=== PATIENT | male | born 1950 | race Caucasian/White ===

== ENCOUNTER 2018-03-13 13:53 | Emergency (ER) | payer MEDICARE, OTHER ==
[2018-03-13] MEDS ORDERED: Fluorescein Sod TOPICAL 0.6* 0.6 MG TEST OPHTHALMIC ONE (14:40)
[2018-03-13] MEDS ORDERED: Tetracaine 0.5% OPTH.SOL 4 ML* 1 DROP BTL LEFT EYE ONE (14:48)
[2018-03-13] MEDS ORDERED: Tetracaine 0.5% OPTH.SOL 15ML* BTL LEFT EYE SCH (15:00)
[2018-03-13 17:42] VITALS: BP 127/81
--- NOTE | 2018-03-13 18:06 | ED ---
Throat Pain/Nasal Congestion - HPI Summary HPI Summary: Patient is a 42-year-old male who presents emergency department for pain to his right eye that started just prior to arrival. 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 Patient states he was wearing safety goggles. He does not wear contacts. Symptoms are mild in severity. Blinking and moving eye makes symptoms worse. Nothing makes symptoms better. - History of Current Complaint Chief Complaint: EDEyeProblem Time Seen by Provider: 03/13/18 14:52 Hx Obtained From: Patient PMH/Surg Hx/FS Hx/Imm Hx Previously Healthy: Yes Infectious Disease History: No Infectious Disease History: Denies: Traveled Outside the [place] in Last 30 Days - Social History Occupation: Employed Full-time Lives: With Family Review of Systems Positive: Drainage, Erythema, Other All Other Systems Reviewed And Are Negative: Yes Physical Exam Triage Information Reviewed: Yes Vital Signs On Initial Exam: Initial Vitals Temp Pulse Resp BP Pulse Ox 98.1 F 86 16 149/83 96 03/13/18 14:25 03/13/18 14:25 03/13/18 14:25 03/13/18 14:25 03/13/18 14:25 Vital Signs Reviewed: Yes Appearance: Positive: Pain Distress - Patient lying in bed with his eyes closed , otherwise well-appearing and nontoxic. Skin: Positive: Warm, Dry Head/Face: Positive: Normal Head/Face Inspection Eyes: Positive: Other: - Left eye is unremarkable. Diffuse injection noted to the right conjunctiva with mild tearing from right eye. Orbital erythema or edema. Extraocular muscles intact. No obvious FB. Neck: Positive: Supple Neurological: Positive: Normal, CN Intact II-III Psychiatric: Positive: Affect/Mood Appropriate Procedures - Procedure Summary Procedure Summary: Right eye was anesthetized with tetracaine drops. Eye was stained with fluorescein dye and examined under Huynh lamp. No obvious uptake was noted. Eyelid was everted and a very small piece of metal was removed with a Q-tip. After the foreign body was removed patient states pain has greatly improved. Diagnostics - Vital Signs Vital Signs Temp Pulse Resp BP Pulse Ox 03/13/18 17:40 97.2 F 66 18 127/81 96 03/13/18 14:25 98.1 F 86 16 149/83 96 - Laboratory Lab Statement: Any lab studies that have been ordered have been reviewed, and results considered in the medical decision making process. EENT Course/Dx - Course Course Of Treatment: Patient presenting with right eye pain after eating with metal. I removed a very small piece of metal from right upper eyelid and patient's pain greatly improved. We'll place him on erythromycin ointment prophylactically. Advised cool compresses. NSAIDs for pain as directed. Advised to follow-up with his eye doctor or rehabilitation supervisor ophthalmology for follow-up if symptoms persist. To return to the ER symptoms change or worsen. Patient understands and agrees with plan. - Differential Diagnoses Differential Diagnoses: Corneal Abrasion - Diagnoses Provider Diagnoses: Corneal abrasion, Eye foreign body Discharge - Sign-Out/Discharge Documenting (check all that apply): Patient Departure - Discharge Plan Condition: Good Disposition: HOME Prescriptions: Erythromycin OPTH OINT* [Erythromycin 0.5% OPTH OINT*] 1 applic RIGHT EYE TID # 1 ophth.oint Patient Education Materials: Corneal Abrasion (ED), Eye Foreign Body (ED) Referrals: Balta Hernandez MD [Medical Doctor] - Aliza Welch MD [Primary Care Provider] - Additional Instructions: Call your eye doctor on Thursday for a follow up appointment Use antibiotic ointment as directed Apply cool compress to eye NSAIDS for pain as directed such as ibuprofen Return to ER if symptoms change or worsen - Billing Disposition and Condition Condition: GOOD Disposition: Home
== END 2018-03-13 17:40 | disposition home or self-care (01) ==
LOC: ED 13:53
DX: S05.01XA Injury of conjunctiva and corneal abrasion without foreign body, right eye, initial encounter (principal); W45.8XXA Other foreign body or object entering through skin, initial encounter; Y92.9 Unspecified place or not applicable
CPT/HCPCS: 99282; A9270-GY

== ENCOUNTER 2019-02-09 11:28 | Emergency (ER) | payer MEDICARE, OTHER ==
[2019-02-09 13:28] LABS: ABS Basophils 0.1 10^3/ul (0-0.2); ABS Eosinophils 0.1 10^3/ul (0-0.6); ABS Lymphocytes 1.8 10^3/ul (1.0-4.8); ABS Monocytes 0.5 10^3/ul (0-0.8); ABS Neutrophils 2.9 10^3/ul (1.5-7.7); Eosinophil % 1.6 %; Hematocrit 41 % (42-52); Lymphocyte % 33.6 %; Mean Corpuscular HGB Conc 34 g/dL (31-36); Mean Corpuscular Hemoglobin 30 pg (27-31); Mean Corpuscular Volume 88 fL (80-94); Mean Platelet Volume 8.6 fL (7.4-10.4); Platelet Count 201 10^3/uL (150-450); Red Blood Count 4.63 10^6 /uL (4.18-5.48); Red Cell Distribution Width 13 % (10-15); White Blood Count 5.3 10^3/uL (3.5-10.8)
--- NOTE | 2019-02-09 13:41 | ED ---
HPI Chest Pain - HPI Summary HPI Summary: Pt is a 68 y/o M presenting to the ED with a chief complaint of chest pain in his R anterior chest onset this morning around 0800 described as squeezing. He also notes slight lightheadedness nausea, diaphoresis, and diarrhea. He states he had a stressful morning and was also drinking coffee. In addition to the chest pain, he states he just finished his Doxycycline for a tick bite, and has hx of Barretts esophagus that he takes daily Omeprazole for. He denies abd pain. - History of Current Complaint Chief Complaint: EDChestPainROMI Time Seen by Provider: 02/09/19 12:57 Hx Obtained From: Patient Onset/Duration: Started Hours Ago, Still Present Timing: Constant, Lasting Hours Initial Severity: Moderate Current Severity: Mild Pain Intensity: 2 Pain Scale Used: 0-10 Numeric Chest Pain Location: Right Anterior Chest Pain Radiates: No Character: Pressure/Squeezing Aggravating Factor(s): Caffeine, Other: - stress Alleviating Factor(s): Nothing Associated Signs and Symptoms: Positive: Chest Pain, Recent Stress, Dizziness, Diaphoresis, Nausea. Negative: Abdominal Pain - Allergy/Home Medications Allergies/Adverse Reactions: Allergies Allergy/AdvReac Type Severity Reaction Status Date / Time strawberry Allergy Anaphylatic Verified 02/09/19 11:34 Shock PMH/Surg Hx/FS Hx/Imm Hx Previously Healthy: Yes Endocrine/Hematology History: Denies: Hx Diabetes GI History: Reports: Hx Gastroesophageal Reflux Disease - butler's esophagus Infectious Disease History: No Infectious Disease History: Denies: Traveled Outside the [place] in Last 30 Days - Family History Known Family History: Negative: Hypertension - Social History Alcohol Use: None Hx Substance Use: No Substance Use Type: Reports: None Hx Tobacco Use: No Smoking Status (MU): Never Smoked Tobacco Review of Systems Positive: Skin Diaphoresis Positive: Chest Pain Positive: Diarrhea, Nausea. Negative: Abdominal Pain Neurological: Other - dizziness All Other Systems Reviewed And Are Negative: Yes Physical Exam - Summary Physical Exam Summary: Constitutional: Well-developed, Well-nourished, Alert. (-) Distressed Skin: Warm, Dry. Superficial abrasions to bilateral forearms HENT: Normocephalic; Atraumatic Eyes: Conjunctiva normal Neck: Musculoskeletal ROM normal neck. (-) JVD, (-) Stridor Cardio: Rhythm regular, rate normal, Heart sounds normal; Intact distal pulses; Radial pulses are 2+ and symmetric. (-) Murmur Pulmonary/Chest wall: Effort normal. (-) Respiratory distress, (-) Wheezes, (-) Rales Abd: Soft, (-) tenderness, (-) Distension, (-) Guarding, (-) Rebound Musculoskeletal: (-) Edema Lymph: (-) Cervical adenopathy Neuro: Alert, Oriented x3 Psych: Mood and affect Normal Triage Information Reviewed: Yes Vital Signs On Initial Exam: Initial Vitals Temp Pulse Resp BP Pulse Ox 97.8 F 72 16 166/86 98 02/09/19 11:32 02/09/19 11:32 02/09/19 11:32 02/09/19 11:32 02/09/19 11:32 Vital Signs Reviewed: Yes Diagnostics - Vital Signs Vital Signs Temp Pulse Resp BP Pulse Ox 02/09/19 13:07 55 15 142/77 98 02/09/19 13:05 67 98 02/09/19 11:32 97.8 F 72 16 166/86 98 - Laboratory Lab Results: Lab Results 02/09/19 Range/Units 13:14 WBC 5.3 (3.5-10.8) 10^3/uL RBC 4.63 (4.18-5.48) 10^6 /uL Hgb 14.0 (14.0-18.0) g/dL Hct 41 L (42-52) % MCV 88 (80-94) fL MCH 30 (27-31) pg MCHC 34 (31-36) g/dL RDW 13 (10-15) % Plt Count 201 (150-450) 10^3/uL MPV 8.6 (7.4-10.4) fL Neut % (Auto) 55.0 % Lymph % (Auto) 33.6 % [place] % (Auto) 8.7 % Eos % (Auto) 1.6 % Baso % (Auto) 1.1 % Absolute Neuts (auto) 2.9 (1.5-7.7) 10^3/ul Absolute Lymphs (auto) 1.8 (1.0-4.8) 10^3/ul Absolute Monos (auto) 0.5 (0-0.8) 10^3/ul Absolute Eos (auto) 0.1 (0-0.6) 10^3/ul Absolute Basos (auto) 0.1 (0-0.2) 10^3/ul Absolute Nucleated RBC 0.0 10^3/ul Nucleated RBC % 0.0 Result Diagrams: 02/09/19 13:14 02/09/19 13:14 Lab Statement: Any lab studies that have been ordered have been reviewed, and results considered in the medical decision making process. - Radiology CXR Radiology Interpretation Completed By: Radiologist Summary of Radiographic Findings: No active cardiopulmonary disease is noted. ED physician has reviewed this report. - EKG 1135 Cardiac Rate: NL - 66bpm EKG Rhythm: Sinus Rhythm ST Segment: Normal Ectopy: None Summary of EKG Findings: An EKG at 1135 shows NSR at 66bpm with nml axis, nml intervals. No STEMI. No acute changes. Re-Evaluation - Re-Evaluation 1st re-eval Re-Evaluation Time: 14:08 Change: Improved Comment: Discussed w/ patient regarding 2nd troponin after 3hrs. He states he'd like to leave because he has an appointment, and agrees to return for any persistent chest pain. Chest Pain Course/Dx - Course Course Of Treatment: 68-year-old male presents with chest pain on the right side of the chest again this morning. Vital signs stable no acute distress. EKG sinus ischemic changes. Chest Pain DDX: The patient is well appearing, with stable vitals. Given the patient's clinical presentation, highest on differential is atypical chest pain. Although less likely, differential also includes the following: --Pneumothorax: Equal breath sounds, story inconsistent since gradual onset of symptoms. CXR shows no evidence of pneumothorax. Unlikely. --Cardiac tamponade: The history and physical are not concerning for tamponade. No Pulsus Paradoxus, no tachypnea. Unlikely. -- Mediastinitis or esophageal rupture: The history is not consistent, as the patient has had no recent history of significant wretching, instrumentation, or mediastinal surgeries. Unlikely. --Aortic dissection: The patient does not describe the classical tearing chest pain radiating into the back, and the CXR does not show mediastinal widening or other signs of aortic dissection. Unlikely. --PE: Vitals wnl (not hypoxic, tachycardic or tachypneic). --ACS: The initial EKG shows no ischemic changes. The initial troponin is not elevated. Heart score - HEART Score. Based on a HEART score of 3 the patient has a low risk (<2% chance) of major adverse cardiac event within the next 6 weeks. I explained to the patient that based on the work-up today, her risk of heart attack is low and that he/she will be discharged with outpatient follow- up. Strict return precautions were discussed regarding worsening chest pain, new / atypical pain, shortness of breath, or any other serious concerns. Patient endorsed understanding and has no questions at this time. - Diagnoses Provider Diagnoses: Chest pain Discharge - Sign-Out/Discharge Documenting (check all that apply): Patient Departure Patient Received Moderate/Deep Sedation with Procedure: No - Discharge Plan Condition: Stable Disposition: HOME Patient Education Materials: Chest Pain (ED) Referrals: Aliza Welch MD [Primary Care Provider] - Additional Instructions: He was seen in the emergency department for chest pain today. Your heart enzyme was normal 1. Chest x-ray did not show any abnormalities. We recommend that you follow up with your primary care doctor for a cardiac stress test Please return to the emergency department with any new or worsening symptoms. - Billing Disposition and Condition Condition: STABLE Disposition: Home - Attestation Statements Document Initiated by Scribe: Yes Documenting Scribe: Laina Hansen Provider For Whom Alex is Documenting (Include Credential): Winter Armstrong MD. Scribe Attestation: I, Laina Hansen, scribed for Winter Armstrong MD. on 02/09/19 at 2121. Scribe Documentation Reviewed: Yes Provider Attestation: The documentation as recorded by the scribe, Laina Hansen accurately reflects the service I personally performed and the decisions made by me, Winter Armstrong MD. Status of Scribe Document: Viewed
[2019-02-09 13:43] LABS: Albumin 4.3 g/dL (3.2-5.2); Albumin/Globulin Ratio 1.7 (1-3); BUN/Creatinine Ratio 15.3 (8-20); Calcium 9.3 mg/dL (8.6-10.3); EGFR African American 109.1 (>60); EGFR Non-African American 90.2 (>60); Globulin 2.6 g/dL (2-4); Total Bilirubin 0.5 mg/dL (0.2-1.0); Total Protein 6.9 g/dL (6.4-8.9)
[2019-02-09 13:44] LABS: Activated Partial Thrombo Time 36.1 seconds (26.0-38.0); INR 0.93 (0.82-1.09)
[2019-02-09 14:23] VITALS: BP 152/91
== END 2019-02-09 14:22 | disposition home or self-care (01) ==
LOC: ED 11:28
DX: R07.9 Chest pain, unspecified (principal); K21.9 Gastro-esophageal reflux disease without esophagitis
CPT/HCPCS: 36415; 71045; 80053; 83605; 83690; 83880; 84484; 85025; 85610; 85730; 93005; 99283